=== PATIENT | male | born 1945 | race Caucasian/White ===

== ENCOUNTER 2022-01-04 12:01 | Emergency (ER) | payer MEDICARE ==
[~2022-01-04] VITALS: Ht 177.8 cm; Wt 77.1 kg
[2022-01-04] MEDS ORDERED: TETANUS/DIPHTHERIA TOXOID [ADULT] 0.5 ML VIAL IM ONE ×2 (13:19→13:30)
[2022-01-04] MEDS ORDERED: LIDOCAINE HCL MPF 1% 5ML VIAL ONE (14:24)
[2022-01-04 14:35] VITALS: BP 148/69
[2022-01-04] MEDS ORDERED: CLIN-141 PO (14:42)
[2022-01-04] MEDS ORDERED: BACI30OI6 TP (14:42)
[2022-01-04] MEDS ORDERED: BACITRACIN 3.5 GM TUBE OU ONE (15:00)
== END 2022-01-04 15:03 | disposition home or self-care (01) ==
LOC: EDH 12:01
DX: S61.012A Laceration without foreign body of left thumb without damage to nail, initial encounter (principal); E78.00 Pure hypercholesterolemia, unspecified; Z90.89 Acquired absence of other organs; Z98.890 Other specified postprocedural states; Z88.0 Allergy status to penicillin; W27.8XXA Contact with other nonpowered hand tool, initial encounter; Y93.89 Activity, other specified; Y92.89 Other specified places as the place of occurrence of the external cause; Y99.8 Other external cause status
CPT/HCPCS: 12001; 73120; 90471; 90714; 99283; J3490

== ENCOUNTER → 2023-09-08 | Outpatient (CLI) | payer MEDICARE ==
[~2023-09-08] MED LIST: BACI30OI6 TP; CLIN-141 PO
== END | disposition home or self-care (01) ==
LOC: RAH 13:11
PROVIDERS: ATTEND Psychiatry & Neurology Neurology
DX: I08.3 Combined rheumatic disorders of mitral, aortic and tricuspid valves (principal); I63.9 Cerebral infarction, unspecified; H53.2 Diplopia; E78.00 Pure hypercholesterolemia, unspecified; Z88.0 Allergy status to penicillin
CPT/HCPCS: 93306; A4216